=== PATIENT | male | born 1960 | race Caucasian/White ===

== ENCOUNTER 2021-02-28 08:39 | Inpatient (IN) ==
[2021-02-28] MEDS ORDERED: GLUCAGON 1 MG VIAL IM PRN ×2 (09:25)
[2021-02-28] MEDS ORDERED: DEXTROSE 50% 25 GM/50 ML VIAL IV PRN ×2 (09:25)
[2021-02-28 10:09] LABS: Basophils # 0.1 10*3/uL (0.0-0.2); Eosinophils # 0.3 10*3/uL (0.0-0.87); Eosinophils % 3.3 % (0.00-10.9); Hematocrit 42.3 VOL% (42.0-52.0); Hemoglobin 15.1 GM/DL (14.0-18.0); Immature Granulocytes % 0.2 %; Immature Granulocytes Absolute 0.02 #; Lymphocytes # 4.2 10*3/uL (1.4-4.0); Mean Corpuscular HGB Conc 35.7 GM/DL (32-36); Mean Corpuscular Volume 85.8 FL (87-102); Mean Platelet Volume 10.8 FL (9.6-12.0); Monocytes % 5.4 % (1.7-12.7); Neutrophils % 48.1 % (38.7-73.9); Platelet Count 159 T/CUMM (130-400); Red Blood Count 4.93 MC/CUMM (3.8-5.5); Red Cell Distribution Width 12.4 % (9.3-17.3); White Blood Count 10.1 T/CUMM (4-12)
[2021-02-28 10:14] LABS: ABG Base Excess -1.4 MMOL/L (-2.5-2.5); ABG HCO3 23.3 MMOL/L (20-26); ABG Oxygen Saturation 97.6 % (95-100); ABG PCO2 43.4 MM HG (35-48); ABG PH 7.357 (7.35-7.45); ABG PO2 88.2 MM HG (80-95); ABG TCO2 20.8 MMOL/L (23-27); Allen Test Positive; Pt O2 Delivery Device Room Air
[2021-02-28] MEDS ORDERED: MORPHINE 2 MG/1 ML SYRINGE IV PRN (10:21)
[2021-02-28] MEDS ORDERED: NITROGLYCERIN SL 0.4 MG TABLET SL PRN (10:21)
[2021-02-28] MEDS ORDERED: CLORAZEPATE 7.5 MG TABLET PO PRN (10:21)
[2021-02-28] MEDS ORDERED: NICOTINE 14 MG/24 HR PATCH TRANSDERM PRN (10:22)
[2021-02-28 10:33] LABS: Albumin 3.9 G/DL (3.4-5.0); Bilirubin,Total 0.5 MG/DL (0.20-1.00); Calcium 8.6 MG/DL (8.5-10.1); Osmolality,Calculated 282.5 MOS/KG (273-304); Potassium 3.9 MMOL/L (3.5-5.1); Total Protein 7.8 G/DL (6.4-8.2)
[2021-02-28] MEDS: INSULIN REGULAR 100 UNIT/ML SUBCUT SCH ×3 (12:00→20:29)
[2021-02-28] MEDS: CHLORHEXIDINE 4% SOLN 118 ML BOTTLE TOP SCH ×3 (13:48→20:42)
[2021-02-28] MEDS: CHLORHEXIDINE 0.12% ORAL RINSE 60 ML BOTTLE SWISH/SPIT SCH ×2 (14:31→20:41)
[2021-02-28] MEDS: SODIUM CHLORIDE 0.9% 1,000 ML IV SCH (16:01)
[2021-03-01] MEDS: CHLORHEXIDINE 4% SOLN 118 ML BOTTLE TOP SCH (04:19)
[2021-03-01] MEDS ORDERED: PAPAVERINE 60 MG/2 ML VIAL ONE (04:20)
[2021-03-01] MEDS ORDERED: VANCOMYCIN 1,000 MG VIAL ONE (04:21)
[2021-03-01] MEDS ORDERED: VANCOMYCIN 500 MG VIAL ONE (04:21)
[2021-03-01] MEDS ORDERED: CEFUROXIME INJ 1,500 MG in SODIUM CHLORIDE 0.9% 100 ML IV ONE (05:00)
[2021-03-01] MEDS ORDERED: ALBUTEROL 2.5 MG/3 ML NEB RESP TX ONE (05:45)
[2021-03-01] MEDS ORDERED: FAMOTIDINE 20 MG TABLET PO ONE (05:45)
[2021-03-01] MEDS ORDERED: DIAZEPAM 5 MG TABLET PO ONE (05:45)
[2021-03-01] MEDS ORDERED: SEVOFLURANE 1 UNIT/15 MINUTE INH ONE (06:05)
[2021-03-01] MEDS ORDERED: VECURONIUM 10 MG VIAL IV ONE ×2 (06:05→08:15)
[2021-03-01] MEDS ORDERED: MINERAL OIL/PETROLATUM OPH OINT 3.5 GM TUBE ONE (06:05)
[2021-03-01] MEDS ORDERED: HEPARIN/NACL 0.9% 2 UNITS/ML 1,000 UNIT/500 ML BAG IV ONE (06:05)
[2021-03-01] MEDS ORDERED: AMINOCAPROIC ACID 5,000 MG/20 ML VIAL ONE (06:05)
[2021-03-01] MEDS ORDERED: ETOMIDATE 40 MG/20 ML VIAL IV ONE (06:05)
[2021-03-01] MEDS ORDERED: PHENYLEPHRINE DRIP 20 MG/250 ML PREMIX IV ONE (06:05)
[2021-03-01] MEDS ORDERED: LIDOCAINE 2% 5 ML VIAL ONE ×3 (06:06→10:18)
[2021-03-01] MEDS ORDERED: MIDAZOLAM 10 MG/2 ML VIAL ONE ×4 (06:16→10:04)
[2021-03-01] MEDS ORDERED: SUFentanil 250 MCG/5 ML AMP ONE ×2 (06:17→07:54)
[2021-03-01 07:45] LABS: ABG Base Excess -1.8 MMOL/L (-2.5-2.5); ABG HCO3 22.9 MMOL/L (20-26); ABG PCO2 58.8 MM HG (35-48); ABG PH 7.265 (7.35-7.45); ABG TCO2 23.6 MMOL/L (23-27); Glucose Heart Surgery 158 MG/DL (74-106); Hemoglobin Heart Surgery 13.7 G/DL (14.0-18.0); Ionized Calcium Arterial 1.18 MMOL/L (1.21-1.46); PCO2 Patient Temp Arterial 58.8 MMHG; PH Patient Temp Arterial 7.265; Patient Temperature 37 CELCIUS; Potassium Heart/CVR 3.2 MMOL/L (3.5-5.1); Sodium Heart/CVR 142 MMOL/L (135-145)
[2021-03-01] MEDS ORDERED: SUFentanil 50 MCG/ML AMP ONE (07:54)
[2021-03-01 08:08] LABS: Bilirubin,Urine Negative (Negative); Blood, Urine Negative (Negative); Glucose,Urine (UA) Negative (Negative); Ketones,Urine Negative (Negative); Mucus,Urine Occasional /LPF (Occasional); Nitrite,Urine Negative (Negative); Protein,Urine Negative; RBC,Urine <1 /HPF (0-4); Squamous Epithelial Cell,Urine Occasional /HPF (0-10); Urine Appearance CLEAR (Clear); Urine Color Yellow (Yellow); Urine Specific Gravity 1.016 (1.001-1.035); Urine Urobilinogen < 2.0 EU/DL (0.2-1.0)
[2021-03-01] MEDS ORDERED: SODIUM CHLORIDE 0.9% 250 ML IV ONE (08:16)
[2021-03-01] MEDS ORDERED: LACTATED RINGERS 1,000 ML IV ONE (08:16)
[2021-03-01] MEDS ORDERED: SODIUM CHLORIDE 0.9% 1,000 ML IV ONE (08:16)
[2021-03-01] MEDS ORDERED: SODIUM CHLORIDE 0.9% 200 ML IV ONE (08:16)
[2021-03-01] MEDS ORDERED: CALCIUM CHLORIDE 1,000 MG/10 ML SYRINGE IV ONE (08:37)
[2021-03-01] MEDS ORDERED: PHENYLEPHRINE DRIP 40 MG/250 ML PREMIX IV ONE (08:37)
[2021-03-01] MEDS ORDERED: POTASSIUM CHLORIDE RIDER 20 MEQ/100 ML PREMIX IV ONE (08:37)
[2021-03-01] MEDS ORDERED: NITROPRUSSIDE 50 MG/2 ML VIAL ONE (08:37)
[2021-03-01] MEDS ORDERED: SODIUM BICARBONATE 50 MEQ/50 ML VIAL IV ONE ×2 (08:37→10:20)
[2021-03-01] MEDS ORDERED: ALBUMIN 5% 12.5 GM/250 ML VIAL IV ONE (08:38)
[2021-03-01 09:22] LABS: Hematocrit Heart Surgery 32.6 PERCENT (42-52); Hemoglobin Heart Surgery 10.5 G/DL (14.0-18.0); PCO2 Patient Temp Venous 41.6 MM HG; PH Patient Temp Venous 7.388; PO2 Patient Temp Venous 37.9 MM HG; Potassium Heart/CVR 4.3 MMOL/L (3.5-5.1); VBG Base Excess 0.1 MEQ/L (0-4); VBG HCO3 24.3 MEQ/L (24-28); VBG Oxygen Saturation 81.6 %; VBG PCO2 48.1 MMHG (41-51); VBG PH 7.345; VBG PO2 46.7 MMHG (17-40)
[2021-03-01] MEDS: INSULIN REGULAR 100 UNIT/ML SUBCUT SCH (09:51)
[2021-03-01] MEDS: SODIUM CHLORIDE 0.9% 1,000 ML IV SCH (09:51)
[2021-03-01] MEDS: CHLORHEXIDINE 0.12% ORAL RINSE 60 ML BOTTLE SWISH/SPIT SCH ×2 (09:51→23:38)
[2021-03-01 09:53] LABS: Hematocrit Heart Surgery 32.8 PERCENT (42-52); Hemoglobin Heart Surgery 10.6 G/DL (14.0-18.0); PCO2 Patient Temp Venous 40.1 MM HG; PH Patient Temp Venous 7.389; PO2 Patient Temp Venous 39.9 MM HG; Potassium Heart/CVR 5.1 MMOL/L (3.5-5.1); VBG Base Excess -0.6 MEQ/L (0-4); VBG HCO3 23.5 MEQ/L (24-28); VBG Oxygen Saturation 78.8 %; VBG PCO2 42.1 MMHG (41-51); VBG PH 7.375; VBG PO2 42.8 MMHG (17-40); VBG Total CO2 22.3 MMOL/L
[2021-03-01] MEDS ORDERED: FAMOTIDINE 20 MG/2 ML VIAL IV ONE (10:09)
[2021-03-01] MEDS ORDERED: ALBUMIN 25% 25 GM/100 ML VIAL IV ONE (10:18)
[2021-03-01] MEDS ORDERED: HEPARIN 10,000 UNIT/10 ML VIAL ONE (10:19)
[2021-03-01] MEDS ORDERED: PROTAMINE SULFATE 50 MG/5 ML VIAL IV ONE (10:19)
[2021-03-01] MEDS ORDERED: methylPREDNISolone SOD SUC 1,000 MG/8 ML VIAL ONE (10:19)
[2021-03-01] MEDS ORDERED: PROTAMINE SULFATE 250 MG/25 ML VIAL IV ONE (10:19)
[2021-03-01] MEDS ORDERED: MAGNESIUM SULFATE 5 GM/10 ML VIAL IV ONE (10:19)
[2021-03-01] MEDS ORDERED: DEXTROSE 5% KCL 20 MEQ 20 MEQ/1,000 ML BAG IV ONE (10:19)
[2021-03-01] MEDS ORDERED: MANNITOL 100 GM/500 ML BAG IV ONE (10:19)
[2021-03-01] MEDS ORDERED: FUROSEMIDE 20 MG/2 ML VIAL ONE (10:19)
[2021-03-01 10:27] LABS: ABG PH 7.348 (7.35-7.45); ABG TCO2 20.1 MMOL/L (23-27); Glucose Heart Surgery 288 MG/DL (74-106); Hematocrit Heart Surgery 36.5 PERCENT (42-52); Hemoglobin Heart Surgery 11.9 G/DL (14.0-18.0); Ionized Calcium Arterial 1.23 MMOL/L (1.21-1.46); PH Patient Temp Arterial 7.348; Patient Temperature 37 CELCIUS; Potassium Heart/CVR 4.3 MMOL/L (3.5-5.1); Sodium Heart/CVR 135 MMOL/L (135-145)
[2021-03-01] MEDS ORDERED: NITROPRUSSIDE 100 MG in DEXTROSE 5% 250 ML IV PRN (11:18)
[2021-03-01] MEDS ORDERED: MAGNESIUM SULF RIDER 2 GM/50 ML PREMIX IV PRN (11:18)
[2021-03-01] MEDS ORDERED: INSULIN REGULAR 100 UNIT/ML IV ONE (11:18)
[2021-03-01] MEDS ORDERED: CHLORHEXIDINE 4% SOLN 118 ML BOTTLE TOP PRN (11:18)
[2021-03-01] MEDS ORDERED: VECURONIUM 10 MG VIAL IV PRN ×2 (11:18)
[2021-03-01] MEDS ORDERED: CALCIUM CHLORIDE 1,000 MG/10 ML SYRINGE IV PRN (11:18)
[2021-03-01] MEDS ORDERED: POTASSIUM CHLORIDE RIDER 10 MEQ/100 ML PREMIX IV PRN (11:18)
[2021-03-01] MEDS ORDERED: DEXTROSE 50% 25 GM/50 ML VIAL IV PRN ×2 (11:18)
[2021-03-01] MEDS ORDERED: INSULIN REGULAR DRIP 100 ML IV SCH (11:18)
[2021-03-01] MEDS ORDERED: LACTATED RINGERS 250 ML IV PRN (11:18)
[2021-03-01] MEDS ORDERED: ONDANSETRON 4 MG/2 ML VIAL IV PRN (11:18)
[2021-03-01] MEDS ORDERED: ACETAMINOPHEN 650 MG SUPP RECTAL PRN (11:18)
[2021-03-01] MEDS ORDERED: PHENYLEPHRINE DRIP 40 MG/250 ML PREMIX IV PRN (11:18)
[2021-03-01] MEDS ORDERED: MIDAZOLAM 2 MG/2 ML VIAL IV PRN (11:18)
[2021-03-01] MEDS ORDERED: SODIUM CHLORIDE 0.45% 1,000 ML IV SCH ×2 (11:18)
[2021-03-01] MEDS ORDERED: INSULIN REGULAR 100 UNIT/ML IV PRN (11:18)
[2021-03-01] MEDS ORDERED: MAGNESIUM SULF RIDER 4 GM/100 ML PREMIX IV PRN (11:18)
[2021-03-01] MEDS ORDERED: MIDAZOLAM 10 MG/2 ML VIAL IV PRN (11:18)
[2021-03-01 11:37] LABS: ABG Base Excess -2.4 MMOL/L (-2.5-2.5); ABG HCO3 22.5 MMOL/L (20-26); ABG PCO2 42.5 MM HG (35-48); ABG PH 7.347 (7.35-7.45); ABG TCO2 20.5 MMOL/L (23-27); Glucose Heart Surgery 140 MG/DL (74-106); Potassium Heart/CVR 3.8 MMOL/L (3.5-5.1)
[2021-03-01 11:38] LABS: Hematocrit Heart Surgery 39.6 PERCENT (42-52); Hemoglobin Heart Surgery 12.9 G/DL (14.0-18.0)
[2021-03-01] MEDS: LACTATED RINGERS 1,000 ML IV PRN ×4 (11:43→20:43)
[2021-03-01 11:45] LABS: Lymphocytes % 13.1 % (21.2-54.2); Mean Corpuscular HGB Conc 34.3 GM/DL (32-36); Mean Corpuscular Volume 88.9 FL (87-102); Mean Platelet Volume 10.8 FL (9.6-12.0); Monocytes % 3.7 % (1.7-12.7); Neutrophils % 81.3 % (38.7-73.9); Platelet Count 132 T/CUMM (130-400); Red Blood Count 4.16 MC/CUMM (3.8-5.5); Red Cell Distribution Width 12.7 % (9.3-17.3)
[2021-03-01 11:46] LABS: Basophils # 0.1 10*3/uL (0.0-0.2); Basophils % 0.3 % (0.0-0.8); Eosinophils # 0.2 10*3/uL (0.0-0.87); Hemoglobin 12.7 GM/DL (14.0-18.0); Immature Granulocytes % 0.6 %; Immature Granulocytes Absolute 0.09 #; Lymphocytes # 1.9 10*3/uL (1.4-4.0); White Blood Count 14.5 T/CUMM (4-12)
[2021-03-01] MEDS: POTASSIUM CHLORIDE RIDER 20 MEQ/100 ML PREMIX IV PRN ×4 (11:46→23:07)
[2021-03-01 11:49] LABS: INR 1.1; PT Patient Result 12.3 SECS (10.5-12.0)
[2021-03-01 11:50] LABS: Partial Thromboplastin Time 24.8 SECS (23.9-33.8)
[2021-03-01 11:56] LABS: Calcium 8.5 MG/DL (8.5-10.1)
[2021-03-01 11:57] LABS: Osmolality,Calculated 286.4 MOS/KG (273-304); Potassium 3.8 MMOL/L (3.5-5.1)
[2021-03-01 12:10] LABS: CKMB % 4.2 %
[2021-03-01 12:11] LABS: High Sensitive Troponin I* 2789.8 ng/L (0-78)
[2021-03-01 12:12] LABS: Albumin 3.6 G/DL (3.4-5.0); Total Protein 6.5 G/DL (6.4-8.2)
[2021-03-01] MEDS: ALBUMIN 5% 12.5 GM/250 ML VIAL IV PRN ×4 (13:49→20:22)
[2021-03-01 14:05] LABS: ABG Base Excess -1.4 MMOL/L (-2.5-2.5); ABG HCO3 23.2 MMOL/L (20-26); ABG Oxygen Saturation 99.6 % (95-100); ABG PCO2 40.9 MM HG (35-48); ABG PH 7.372 (7.35-7.45); ABG TCO2 20.8 MMOL/L (23-27); Glucose Heart Surgery 256 MG/DL (74-106); Hematocrit Heart Surgery 40.4 PERCENT (42-52); Hemoglobin Heart Surgery 13.1 G/DL (14.0-18.0); Potassium Heart/CVR 3.7 MMOL/L (3.5-5.1)
[2021-03-01] MEDS: MORPHINE 10 MG/1 ML VIAL IV PRN (14:20)
[2021-03-01] MEDS ORDERED: DEXMEDETOMIDINE 200 MCG in SODIUM CHLORIDE 0.9% 48 ML IV PRN (15:25)
[2021-03-01] MEDS: KETOROLAC 30 MG/1 ML VIAL IV SCH ×2 (15:42→20:42)
[2021-03-01 15:48] LABS: ABG Base Excess -1.8 MMOL/L (-2.5-2.5); ABG HCO3 22.9 MMOL/L (20-26); ABG Oxygen Saturation 98.9 % (95-100); ABG PCO2 40.7 MM HG (35-48); ABG PH 7.368 (7.35-7.45); ABG TCO2 20.7 MMOL/L (23-27); Glucose Heart Surgery 279 MG/DL (74-106); Hematocrit Heart Surgery 38.1 PERCENT (42-52); Hemoglobin Heart Surgery 12.4 G/DL (14.0-18.0)
[2021-03-01] MEDS: CEFUROXIME INJ 1,500 MG in SODIUM CHLORIDE 0.9% 100 ML IV SCH (18:44)
[2021-03-01 19:43] LABS: ABG Base Excess -3.6 MMOL/L (-2.5-2.5); ABG HCO3 21.4 MMOL/L (20-26); ABG Oxygen Saturation 98.6 % (95-100); ABG PCO2 42.9 MM HG (35-48); ABG PH 7.324 (7.35-7.45); ABG TCO2 20.2 MMOL/L (23-27); Glucose Heart Surgery 207 MG/DL (74-106); Hematocrit Heart Surgery 34.6 PERCENT (42-52); Hemoglobin Heart Surgery 11.2 G/DL (14.0-18.0); Potassium Heart/CVR 3.9 MMOL/L (3.5-5.1)
[2021-03-01] MEDS ORDERED: FUROSEMIDE 40 MG/4 ML VIAL IV ONE (21:16)
[2021-03-01 21:58] LABS: ABG Base Excess -2.9 MMOL/L (-2.5-2.5); ABG PCO2 45.3 MM HG (35-48); ABG TCO2 21.1 MMOL/L (23-27); Glucose Heart Surgery 194 MG/DL (74-106); Hematocrit Heart Surgery 34.7 PERCENT (42-52); Hemoglobin Heart Surgery 11.2 G/DL (14.0-18.0); Potassium Heart/CVR 3.7 MMOL/L (3.5-5.1)
[2021-03-01 22:38] LABS: ABG Base Excess -1.4 MMOL/L (-2.5-2.5); ABG HCO3 24.1 MMOL/L (20-26); ABG Oxygen Saturation 97.6 % (95-100); ABG PCO2 43.7 MM HG (35-48); ABG PO2 108.8 MM HG (80-95); ABG TCO2 25.5 MMOL/L (23-27); Glucose Heart Surgery 172 MG/DL (74-106); Hemoglobin Heart Surgery 12.1 G/DL (14.0-18.0); Potassium Heart/CVR 3.7 MMOL/L (3.5-5.1)
[2021-03-01 23:58] LABS: ABG Base Excess -1.2 MMOL/L (-2.5-2.5); ABG HCO3 23.4 MMOL/L (20-26); ABG Oxygen Saturation 96.5 % (95-100); ABG PH 7.375 (7.35-7.45); ABG PO2 79.5 MM HG (80-95); ABG TCO2 21.5 MMOL/L (23-27); Glucose Heart Surgery 182 MG/DL (74-106); Hematocrit Heart Surgery 34.9 PERCENT (42-52); Hemoglobin Heart Surgery 11.3 G/DL (14.0-18.0); Potassium Heart/CVR 3.9 MMOL/L (3.5-5.1)
[2021-03-02] MEDS: KETOROLAC 30 MG/1 ML VIAL IV SCH ×4 (03:02→20:57)
[2021-03-02 03:31] LABS: ABG Base Excess 0.2 MMOL/L (-2.5-2.5); ABG HCO3 24.6 MMOL/L (20-26); ABG Oxygen Saturation 96.9 % (95-100); ABG PCO2 42.6 MM HG (35-48); ABG PH 7.383 (7.35-7.45); ABG PO2 82.3 MM HG (80-95); ABG TCO2 22.8 MMOL/L (23-27); Glucose Heart Surgery 150 MG/DL (74-106); Hematocrit Heart Surgery 34.2 PERCENT (42-52); Hemoglobin Heart Surgery 11.1 G/DL (14.0-18.0); Potassium Heart/CVR 3.7 MMOL/L (3.5-5.1)
[2021-03-02 03:43] LABS: Basophils % 0.1 % (0.0-0.8); Hematocrit 31.1 VOL% (42.0-52.0); Hemoglobin 11.3 GM/DL (14.0-18.0); Immature Granulocytes % 0.6 %; Immature Granulocytes Absolute 0.11 #; Lymphocytes # 1.3 10*3/uL (1.4-4.0); Lymphocytes % 7.2 % (21.2-54.2); Mean Corpuscular HGB Conc 36.3 GM/DL (32-36); Mean Corpuscular Volume 86.4 FL (87-102); Monocytes % 3.1 % (1.7-12.7); Platelet Count 115 T/CUMM (130-400); Red Cell Distribution Width 12.6 % (9.3-17.3); White Blood Count 18.5 T/CUMM (4-12)
[2021-03-02 04:03] LABS: Albumin 3.7 G/DL (3.4-5.0); Bilirubin,Direct 0.22 MG/DL (0.0-0.20); Bilirubin,Total 0.7 MG/DL (0.20-1.00); Calcium 7.9 MG/DL (8.5-10.1); Potassium 3.8 MMOL/L (3.5-5.1); Total Protein 6.2 G/DL (6.4-8.2)
[2021-03-02 04:05] LABS: CKMB % 1.9 %
[2021-03-02 04:08] LABS: High Sensitive Troponin I* 2308.4 ng/L (0-78)
[2021-03-02] MEDS: POTASSIUM CHLORIDE RIDER 20 MEQ/100 ML PREMIX IV PRN (04:30)
[2021-03-02] MEDS: CEFUROXIME INJ 1,500 MG in SODIUM CHLORIDE 0.9% 100 ML IV SCH ×2 (06:23→18:12)
[2021-03-02] MEDS: MORPHINE 10 MG/1 ML VIAL IV PRN (06:32)
[2021-03-02] MEDS: GABAPENTIN 300 MG CAPSULE PO SCH (08:13)
[2021-03-02] MEDS: ASPIRIN EC 81 MG TABLET PO SCH (08:14)
[2021-03-02] MEDS: METOPROLOL TARTRATE 25 MG TABLET PO SCH ×2 (08:14→20:54)
[2021-03-02] MEDS: CHLORHEXIDINE 0.12% ORAL RINSE 60 ML BOTTLE SWISH/SPIT SCH ×2 (08:15→20:57)
[2021-03-02] MEDS: PANTOPRAZOLE 20 MG TABLET PO SCH (08:15)
[2021-03-02] MEDS ORDERED: GLUCAGON 1 MG VIAL IM PRN (10:18)
[2021-03-02] MEDS ORDERED: POTASSIUM CHLORIDE 20 MEQ TABLET PO PRN (10:18)
[2021-03-02] MEDS ORDERED: DEXTROSE 50% 25 GM/50 ML VIAL IV PRN (10:18)
[2021-03-02] MEDS ORDERED: MAGNESIUM SULF RIDER 4 GM/100 ML PREMIX IV PRN (10:18)
[2021-03-02] MEDS ORDERED: ACETAMINOPHEN 325 MG TABLET PO PRN (10:18)
[2021-03-02] MEDS ORDERED: ONDANSETRON 4 MG/2 ML VIAL IV PRN (10:18)
[2021-03-02] MEDS ORDERED: ZALEPLON 5 MG CAPSULE PO PRN (10:18)
[2021-03-02] MEDS ORDERED: ALUMINUM/MAGNES/SIMETH MAX STR 30 ML UDCUP PO PRN (10:18)
[2021-03-02] MEDS ORDERED: MAGNESIUM SULF RIDER 2 GM/50 ML PREMIX IV PRN (10:18)
[2021-03-02] MEDS ORDERED: SODIUM CHLOR 0.45% KCL 20 MEQ 20 MEQ/1,000 ML BAG IV SCH (10:30)
[2021-03-02 12:36] LABS: CKMB % 1.1 %
[2021-03-02 12:44] LABS: High Sensitive Troponin I* 1308.5 ng/L (0-78)
[2021-03-02] MEDS: MAGNESIUM HYDROXIDE SUSP 30 ML UDCUP PO PRN (15:22)
[2021-03-02] MEDS: SIMVASTATIN 20 MG TABLET PO SCH (20:54)
[2021-03-02] MEDS: PRAMIPEXOLE 0.25 MG TABLET PO SCH (20:55)
[2021-03-02] MEDS: GABAPENTIN 600 MG TABLET PO SCH (20:57)
[2021-03-02] MEDS: ZALEPLON 5 MG CAPSULE PO PRN (20:58)
[2021-03-02] MEDS ORDERED: NORTRIPTYLINE 10 MG PO SCH (21:00)
[2021-03-03] MEDS: KETOROLAC 30 MG/1 ML VIAL IV SCH ×4 (04:20→21:29)
[2021-03-03 04:36] LABS: Basophils % 0.1 % (0.0-0.8); Hematocrit 32.3 VOL% (42.0-52.0); Hemoglobin 10.9 GM/DL (14.0-18.0); Immature Granulocytes % 0.6 %; Immature Granulocytes Absolute 0.15 #; Lymphocytes # 3.3 10*3/uL (1.4-4.0); Lymphocytes % 13.5 % (21.2-54.2); Mean Corpuscular HGB Conc 33.7 GM/DL (32-36); Mean Corpuscular Volume 90.7 FL (87-102); Mean Platelet Volume 11.3 FL (9.6-12.0); Neutrophils % 80.8 % (38.7-73.9); Platelet Count 138 T/CUMM (130-400); Red Blood Count 3.56 MC/CUMM (3.8-5.5); Red Cell Distribution Width 13.1 % (9.3-17.3); White Blood Count 24.2 T/CUMM (4-12)
[2021-03-03 04:59] LABS: Hypochromasia 1+; Lymphocytes 10 % (20-55); Microcytosis 1+; Platelet Estimate Adequate; Segmented Neutrophils 88 % (50-85); Total Cells Counted 100
[2021-03-03 05:12] LABS: Albumin 3.8 G/DL (3.4-5.0); Bilirubin,Direct 0.16 MG/DL (0.0-0.20); Bilirubin,Total 0.6 MG/DL (0.20-1.00); Calcium 7.9 MG/DL (8.5-10.1); Osmolality,Calculated 285.8 MOS/KG (273-304); Potassium 4.4 MMOL/L (3.5-5.1); Total Protein 6.7 G/DL (6.4-8.2)
[2021-03-03 05:14] LABS: Alanine Aminotransferase 45 U/L (16-61); Albumin 3.7 G/DL (3.4-5.0); Alkaline Phosphatase 47 U/L (45-117); Aspartate Amino Transferase 38 U/L (0-37); Bilirubin,Indirect 1.2 MG/DL (0.0-1.0); Total Protein 6.6 G/DL (6.4-8.2)
[2021-03-03] MEDS ORDERED: FUROSEMIDE 40 MG/4 ML VIAL IV ONE (06:00)
[2021-03-03] MEDS: GABAPENTIN 300 MG CAPSULE PO SCH (09:33)
[2021-03-03] MEDS: metFORMIN 500 MG TABLET PO SCH ×2 (09:33→21:29)
[2021-03-03] MEDS: ASCORBIC ACID 500 MG TABLET PO SCH ×2 (09:33→21:30)
[2021-03-03] MEDS: ASPIRIN EC 81 MG TABLET PO SCH (09:33)
[2021-03-03] MEDS: METOPROLOL TARTRATE 25 MG TABLET PO SCH (09:33)
[2021-03-03] MEDS: DOCUSATE SODIUM 100 MG CAPSULE PO SCH (09:34)
[2021-03-03] MEDS: CHLORHEXIDINE 0.12% ORAL RINSE 60 ML BOTTLE SWISH/SPIT SCH ×2 (09:34→21:31)
[2021-03-03] MEDS: PANTOPRAZOLE 20 MG TABLET PO SCH (09:34)
[2021-03-03] MEDS: FERROUS SULFATE 325 MG TABLET PO SCH (09:34)
[2021-03-03] MEDS: LEVOFLOXACIN 500 MG TABLET PO SCH (14:38)
[2021-03-03] MEDS: INSULIN REGULAR 100 UNIT/ML SUBCUT SCH ×2 (16:14→21:30)
[2021-03-03] MEDS: ZALEPLON 5 MG CAPSULE PO PRN (21:29)
[2021-03-03] MEDS: PRAMIPEXOLE 0.25 MG TABLET PO SCH (21:29)
[2021-03-03] MEDS: SIMVASTATIN 20 MG TABLET PO SCH (21:29)
[2021-03-03] MEDS: GABAPENTIN 600 MG TABLET PO SCH (21:30)
[2021-03-04] MEDS: KETOROLAC 30 MG/1 ML VIAL IV SCH ×4 (03:32→20:59)
[2021-03-04 04:59] LABS: Basophils % 0.1 % (0.0-0.8); Eosinophils # 0.1 10*3/uL (0.0-0.87); Eosinophils % 0.3 % (0.00-10.9); Hematocrit 29.6 VOL% (42.0-52.0); Hemoglobin 9.9 GM/DL (14.0-18.0); Immature Granulocytes % 0.6 %; Immature Granulocytes Absolute 0.09 #; Lymphocytes # 3.9 10*3/uL (1.4-4.0); Lymphocytes % 27.1 % (21.2-54.2); Mean Corpuscular HGB Conc 33.4 GM/DL (32-36); Mean Corpuscular Volume 91.9 FL (87-102); Monocytes % 6.7 % (1.7-12.7); Neutrophils % 65.2 % (38.7-73.9); Platelet Count 124 T/CUMM (130-400); Red Blood Count 3.22 MC/CUMM (3.8-5.5); Red Cell Distribution Width 12.9 % (9.3-17.3); White Blood Count 14.4 T/CUMM (4-12)
[2021-03-04 05:31] LABS: Albumin 3.3 G/DL (3.4-5.0); Bilirubin,Direct 0.18 MG/DL (0.0-0.20); Calcium 7.5 MG/DL (8.5-10.1); Osmolality,Calculated 283.5 MOS/KG (273-304); Potassium 3.8 MMOL/L (3.5-5.1); Total Protein 5.9 G/DL (6.4-8.2)
[2021-03-04 05:48] LABS: Alanine Aminotransferase 35 U/L (16-61); Albumin 3.3 G/DL (3.4-5.0); Alkaline Phosphatase 46 U/L (45-117); Aspartate Amino Transferase 27 U/L (0-37); Bilirubin,Indirect 1.1 MG/DL (0.0-1.0); Total Protein 5.6 G/DL (6.4-8.2)
[2021-03-04 06:51] LABS: Microcytosis 1+
[2021-03-04 06:52] LABS: Polychromasia Slight; Stomatocytes Slight
[2021-03-04 06:53] LABS: Platelet Estimate Normal
[2021-03-04] MEDS: INSULIN REGULAR 100 UNIT/ML SUBCUT SCH ×4 (08:33→20:58)
[2021-03-04] MEDS: DOCUSATE SODIUM 100 MG CAPSULE PO SCH (09:07)
[2021-03-04] MEDS: ASPIRIN EC 81 MG TABLET PO SCH (09:07)
[2021-03-04] MEDS: GABAPENTIN 300 MG CAPSULE PO SCH (09:07)
[2021-03-04] MEDS: MAGNESIUM HYDROXIDE SUSP 30 ML UDCUP PO PRN (09:07)
[2021-03-04] MEDS: METOPROLOL TARTRATE 25 MG TABLET PO SCH (09:07)
[2021-03-04] MEDS: CLOPIDOGREL 75 MG TABLET PO SCH (09:07)
[2021-03-04] MEDS: LEVOFLOXACIN 500 MG TABLET PO SCH (09:07)
[2021-03-04] MEDS: metFORMIN 500 MG TABLET PO SCH ×2 (09:08→20:57)
[2021-03-04] MEDS: PANTOPRAZOLE 20 MG TABLET PO SCH (09:08)
[2021-03-04] MEDS: FERROUS SULFATE 325 MG TABLET PO SCH (09:08)
[2021-03-04] MEDS: ASCORBIC ACID 500 MG TABLET PO SCH ×2 (09:08→20:57)
[2021-03-04] MEDS: CHLORHEXIDINE 0.12% ORAL RINSE 60 ML BOTTLE SWISH/SPIT SCH ×2 (09:09→20:58)
[2021-03-04] MEDS: PRAMIPEXOLE 0.25 MG TABLET PO SCH (20:57)
[2021-03-04] MEDS: ZALEPLON 5 MG CAPSULE PO PRN (20:57)
[2021-03-04] MEDS: GABAPENTIN 600 MG TABLET PO SCH (20:57)
[2021-03-04] MEDS: SIMVASTATIN 20 MG TABLET PO SCH (20:58)
[2021-03-05] MEDS: KETOROLAC 30 MG/1 ML VIAL IV SCH ×4 (03:36→20:55)
[2021-03-05] MEDS: ZALEPLON 5 MG CAPSULE PO PRN ×3 (03:51→22:00)
[2021-03-05 06:22] LABS: Basophils # 0.1 10*3/uL (0.0-0.2); Basophils % 0.4 % (0.0-0.8); Eosinophils # 0.2 10*3/uL (0.0-0.87); Eosinophils % 1.1 % (0.00-10.9); Hematocrit 33.4 VOL% (42.0-52.0); Hemoglobin 11.2 GM/DL (14.0-18.0); Immature Granulocytes % 0.6 %; Immature Granulocytes Absolute 0.09 #; Lymphocytes # 3.7 10*3/uL (1.4-4.0); Lymphocytes % 26.7 % (21.2-54.2); Mean Corpuscular HGB Conc 33.5 GM/DL (32-36); Mean Corpuscular Volume 89.3 FL (87-102); Mean Platelet Volume 10.6 FL (9.6-12.0); Monocytes % 6.1 % (1.7-12.7); Neutrophils % 65.1 % (38.7-73.9); Platelet Count 152 T/CUMM (130-400); Red Blood Count 3.74 MC/CUMM (3.8-5.5); Red Cell Distribution Width 12.6 % (9.3-17.3)
[2021-03-05 06:45] LABS: Calcium 8.4 MG/DL (8.5-10.1); Osmolality,Calculated 278.8 MOS/KG (273-304); Potassium 3.9 MMOL/L (3.5-5.1)
[2021-03-05] MEDS: DOCUSATE SODIUM 100 MG CAPSULE PO SCH (08:33)
[2021-03-05] MEDS: ASPIRIN EC 81 MG TABLET PO SCH (08:33)
[2021-03-05] MEDS: PANTOPRAZOLE 20 MG TABLET PO SCH (08:33)
[2021-03-05] MEDS: GABAPENTIN 300 MG CAPSULE PO SCH (08:34)
[2021-03-05] MEDS: CLOPIDOGREL 75 MG TABLET PO SCH (08:34)
[2021-03-05] MEDS: LEVOFLOXACIN 500 MG TABLET PO SCH (08:34)
[2021-03-05] MEDS: ASCORBIC ACID 500 MG TABLET PO SCH ×2 (08:34→20:54)
[2021-03-05] MEDS: METOPROLOL TARTRATE 25 MG TABLET PO SCH (08:34)
[2021-03-05] MEDS: metFORMIN 500 MG TABLET PO SCH ×2 (08:34→20:54)
[2021-03-05] MEDS: FERROUS SULFATE 325 MG TABLET PO SCH (08:37)
[2021-03-05] MEDS: INSULIN REGULAR 100 UNIT/ML SUBCUT SCH ×4 (09:44→20:55)
[2021-03-05] MEDS: CHLORHEXIDINE 0.12% ORAL RINSE 60 ML BOTTLE SWISH/SPIT SCH ×2 (09:45→20:55)
[2021-03-05] MEDS: GABAPENTIN 600 MG TABLET PO SCH (20:54)
[2021-03-05] MEDS: PRAMIPEXOLE 0.25 MG TABLET PO SCH (20:54)
[2021-03-05] MEDS: SIMVASTATIN 20 MG TABLET PO SCH (20:54)
[2021-03-06] MEDS: KETOROLAC 30 MG/1 ML VIAL IV SCH ×2 (04:28→09:24)
[2021-03-06 05:28] LABS: Basophils # 0.1 10*3/uL (0.0-0.2); Basophils % 0.3 % (0.0-0.8); Eosinophils # 0.3 10*3/uL (0.0-0.87); Eosinophils % 1.9 % (0.00-10.9); Hematocrit 34.6 VOL% (42.0-52.0); Hemoglobin 11.8 GM/DL (14.0-18.0); Immature Granulocytes % 0.8 %; Immature Granulocytes Absolute 0.12 #; Lymphocytes # 3.8 10*3/uL (1.4-4.0); Lymphocytes % 25.8 % (21.2-54.2); Mean Corpuscular HGB Conc 34.1 GM/DL (32-36); Mean Corpuscular Volume 88.7 FL (87-102); Mean Platelet Volume 10.6 FL (9.6-12.0); Monocytes % 7.5 % (1.7-12.7); Neutrophils % 63.7 % (38.7-73.9); Platelet Count 198 T/CUMM (130-400); Red Cell Distribution Width 12.5 % (9.3-17.3); White Blood Count 14.9 T/CUMM (4-12)
[2021-03-06 06:04] LABS: Alanine Aminotransferase 41 U/L (16-61); Albumin 3.5 G/DL (3.4-5.0); Alkaline Phosphatase 69 U/L (45-117); Aspartate Amino Transferase 27 U/L (0-37); Bilirubin,Indirect 0.9 MG/DL (0.0-1.0); Blood Urea Nitrogen 15 MG/DL (7-18); Calcium 8.9 MG/DL (8.5-10.1); Carbon Dioxide 26 MMOL/L (21-32); Estimated Glom Filtration Rate 122 ML/MIN; Glucose 172 MG/DL (74-106); Osmolality,Calculated 277.8 MOS/KG (273-304); Potassium 3.8 MMOL/L (3.5-5.1); Sodium 137 MMOL/L (136-145); Total Protein 7.2 G/DL (6.4-8.2)
[2021-03-06 08:17] VITALS: BP 136/69
[2021-03-06] MEDS: FERROUS SULFATE 325 MG TABLET PO SCH (09:22)
[2021-03-06] MEDS: ASCORBIC ACID 500 MG TABLET PO SCH (09:22)
[2021-03-06] MEDS: CLOPIDOGREL 75 MG TABLET PO SCH (09:22)
[2021-03-06] MEDS: DOCUSATE SODIUM 100 MG CAPSULE PO SCH (09:22)
[2021-03-06] MEDS: ASPIRIN EC 81 MG TABLET PO SCH (09:22)
[2021-03-06] MEDS: GABAPENTIN 300 MG CAPSULE PO SCH (09:22)
[2021-03-06] MEDS: METOPROLOL TARTRATE 25 MG TABLET PO SCH (09:23)
[2021-03-06] MEDS: PANTOPRAZOLE 20 MG TABLET PO SCH (09:23)
[2021-03-06] MEDS: LEVOFLOXACIN 500 MG TABLET PO SCH (09:23)
[2021-03-06] MEDS: metFORMIN 500 MG TABLET PO SCH (09:23)
[2021-03-06] MEDS: CHLORHEXIDINE 0.12% ORAL RINSE 60 ML BOTTLE SWISH/SPIT SCH (09:23)
[2021-03-06] MEDS: INSULIN REGULAR 100 UNIT/ML SUBCUT SCH (09:33)
== END 2021-03-06 11:50 | disposition home health service (06) | DRG 236 ==
LOC: N.4E 08:39 → N.TELEN 09:43 → N.4E 09:45 → N.CVR 03-01 10:49 → N.TELES 03-02 10:08